=== PATIENT | female | born 1965 | race American Indian/Alaskan Native ===

== ENCOUNTER 2019-07-11 23:13 | Emergency (ER) | payer MEDICAID ==
--- NOTE | 2019-07-11 23:33 | Emergency Department Report ---
ED Neuro Deficit HPI - General Stated Complaint: CODE STROKE Time Seen by Provider: 07/11/19 23:21 Source: patient, EMS Mode of arrival: Stretcher Limitations: No Limitations - History of Present Illness Initial Comments: Mrs. Nur is a 54-year-old female history of DM, HTN, CVA presents with slurred speech, left sided weakness and facial droop sincer 10:15 PM. She was evaluated and treated last month at this hospital for CVA. Her symptoms have worsened today. She was discharged with aspirin. MRI brain without contrast revealed 1.2 cm acute infarct involving the right rody, there was a 4 mm focus of recent infarction along the lateral aspect of the left lateral ventricle Duplex Doppler ultrasound carotid bilateral revealed less than 50% diameter stenosis bilaterally -: Sudden, hour(s) (1 ) Location: speech, left face, left arm, left leg Presenting Symptoms: Present: Weak/Paralyzed One Side Place: home Severity: moderate Quality: weak Improves With: none Worsens With: none On Anticoagulants: No Context: sudden onset Associated Symptoms: denies other symptoms - Related Data Home Medications: Previous Rx's Medication Instructions Recorded Last Taken Type Aspirin 325 mg PO QDAY #30 tablet 06/23/19 Unknown Rx AtorvaSTATin [Lipitor] 40 mg PO QHS #30 tablet 06/23/19 Unknown Rx Insulin NPH/Regular [NovoLIN 70/30] 25 unit SUB-Q BIDDIAB #20 ml 06/23/19 Unknown Rx Pantoprazole [Protonix TAB] 40 mg PO QDAY #30 tablet 06/23/19 Unknown Rx Spironolactone [Aldactone] 50 mg PO QDAY #30 tablet 06/23/19 Unknown Rx amLODIPine 10 mg PO QDAY #30 tablet 06/23/19 Unknown Rx carvediloL [Coreg] 12.5 mg PO BID #60 tablet 06/23/19 Unknown Rx hydroCHLOROthiazide [HCTZ] 25 mg PO QDAY #30 tablet 06/23/19 Unknown Rx lisinopriL [Zestril TAB] 40 mg PO QDAY #30 tablet 06/23/19 Unknown Rx methOCARBAMOL [Robaxin TAB] 500 mg PO BID #60 tablet 06/23/19 Unknown Rx Allergies/Adverse Reactions: Allergies Allergy/AdvReac Type Severity Reaction Status Date / Time Penicillins Allergy Unknown Verified 06/20/19 08:46 Sulfa (Sulfonamide Allergy Unknown Verified 06/20/19 08:46 Antibiotics) ED Review of Systems ROS: Stated complaint: CODE STROKE Other details as noted in HPI Comment: All other systems reviewed and negative Constitutional: denies: fever, malaise Respiratory: denies: cough Cardiovascular: denies: chest pain Gastrointestinal: denies: abdominal pain ED Past Medical Hx - Past Medical History Previous Medical History?: Yes Hx Hypertension: Yes Hx CVA: Yes (TIA) Hx Heart Attack/AMI: Yes ("2 heart attacks in the past") Hx Diabetes: Yes Hx GERD: Yes Hx Liver Disease: No Hx Renal Disease: Yes Hx Sickle Cell Disease: No Hx Seizures: No Hx Asthma: No Hx COPD: Yes Hx Dementia: Yes Additional medical history: Cocaine abuse - Surgical History Past Surgical History?: Yes Hx Pacemaker: No Hx Internal Defibrillator: No Additional Surgical History: unknown - Social History Smoking Status: Current Every Day Smoker Substance Use Type: Alcohol - Medications Home Medications: Home Medications Medication Instructions Recorded Confirmed Last Taken Type Aspirin 325 mg PO QDAY #30 tablet 06/23/19 Unknown Rx AtorvaSTATin [Lipitor] 40 mg PO QHS #30 tablet 06/23/19 Unknown Rx Insulin NPH/Regular [NovoLIN 70/30] 25 unit SUB-Q BIDDIAB #20 ml 06/23/19 Unknown Rx Pantoprazole [Protonix TAB] 40 mg PO QDAY #30 tablet 06/23/19 Unknown Rx Spironolactone [Aldactone] 50 mg PO QDAY #30 tablet 06/23/19 Unknown Rx amLODIPine 10 mg PO QDAY #30 tablet 06/23/19 Unknown Rx carvediloL [Coreg] 12.5 mg PO BID #60 tablet 06/23/19 Unknown Rx hydroCHLOROthiazide [HCTZ] 25 mg PO QDAY #30 tablet 06/23/19 Unknown Rx lisinopriL [Zestril TAB] 40 mg PO QDAY #30 tablet 06/23/19 Unknown Rx methOCARBAMOL [Robaxin TAB] 500 mg PO BID #60 tablet 06/23/19 Unknown Rx ED Neuro Physical Exam - General Limitations: No Limitations General appearance: alert, in no apparent distress Suspected Stroke: No - Head Head exam: Present: atraumatic, normocephalic - Eye Eye exam: Present: normal appearance - ENT ENT exam: Present: mucous membranes moist - Neck Neck exam: Present: normal inspection - Respiratory Respiratory exam: Present: normal lung sounds bilaterally. Absent: respiratory distress, wheezes, rales, rhonchi - Cardiovascular Cardiovascular Exam: Present: regular rate, normal rhythm, normal heart sounds. Absent: systolic murmur, diastolic murmur, rubs, gallop - GI/Abdominal GI/Abdominal exam: Present: soft, normal bowel sounds. Absent: distended, tenderness, guarding, rebound - Extremities Exam Extremities exam: Present: normal inspection - Neurological Exam Neurological exam: Present: alert, oriented X3 - NIHSS Assessment Interval: Baseline 1a. Level of Consciousness: alert/keenly responsive 1b. LOC Questions: answers both correctly 1c. LOC Commands: performs tasks correctly 2. Best Gaze: normal 3. Visual: no visual loss 4. Facial Palsy: normal symmetrical movement 5b. Motor Arm Right: no drift 5a. Motor Arm Left: no drift 6a. Motor Leg Left: no drift 6b. Motor Leg Right: no drift 7. Limb Ataxia: absent 8. Sensory: normal 9. Best Language: mild/moderate aphasia 10. Dysarthria: mild/moderate dysarthria 11. Extinction/Inattention: no abnormality Total Score: 2 Stroke Severity: Minor Stroke - Psychiatric Psychiatric exam: Present: normal affect, normal mood - Skin Skin exam: Present: warm, dry, intact, normal color. Absent: rash ED Course Vital Signs 07/11/19 07/11/19 07/12/19 23:39 23:45 00:00 Pulse Rate 85 86 Respiratory 19 18 Rate Blood Pressure 184/104 175/98 O2 Sat by Pulse 94 95 96 Oximetry 07/12/19 07/12/19 07/12/19 00:15 00:32 00:45 Pulse Rate 82 80 Respiratory 20 22 Rate Blood Pressure 157/101 157/101 183/119 O2 Sat by Pulse 96 96 97 Oximetry 07/12/19 01:00 Pulse Rate 80 Respiratory 19 Rate Blood Pressure 180/123 O2 Sat by Pulse 96 Oximetry - Lab Data Result diagrams: 07/11/19 23:52 07/11/19 23:52 Lab Results 07/11/19 07/11/19 07/11/19 Range/Units 23:52 23:52 23:52 WBC 7.0 (4.5-11.0) K/mm3 RBC 4.45 (3.65-5.03) M/mm3 Hgb 12.6 (10.1-14.3) gm/dl Hct 38.0 (30.3-42.9) % MCV 85 (79-97) fl MCH 28 (28-32) pg MCHC 33 (30-34) % RDW 14.5 (13.2-15.2) % Plt Count 189 (140-440) K/mm3 Lymph % (Auto) 35.7 H (13.4-35.0) % [place] % (Auto) 6.4 (0.0-7.3) % Eos % (Auto) 0.7 (0.0-4.3) % Baso % (Auto) 0.5 (0.0-1.8) % Lymph # 2.5 (1.2-5.4) K/mm3 [place] # 0.4 (0.0-0.8) K/mm3 Eos # 0.0 (0.0-0.4) K/mm3 Baso # 0.0 (0.0-0.1) K/mm3 Seg Neutrophils % 56.7 (40.0-70.0) % Seg Neutrophils # 4.0 (1.8-7.7) K/mm3 PT 12.3 (12.2-14.9) Sec. INR 0.90 (0.87-1.13) APTT 33.0 (24.2-36.6) Sec. Sodium (137-145) mmol/L Potassium (3.6-5.0) mmol/L Chloride (98-107) mmol/L Carbon Dioxide (22-30) mmol/L Anion Gap mmol/L BUN (7-17) mg/dL Creatinine (0.7-1.2) mg/dL Estimated GFR ml/min BUN/Creatinine Ratio % Glucose (65-100) mg/dL POC Glucose (70-105) Calcium (8.4-10.2) mg/dL Total Bilirubin (0.1-1.2) mg/dL AST (5-40) units/L ALT (7-56) units/L Alkaline Phosphatase (35-129) units/L Troponin T < 0.010 (0.00-0.029) ng/mL Total Protein (6.3-8.2) g/dL Albumin (3.9-5) g/dL Albumin/Globulin Ratio % Urine Opiates Screen Urine Methadone Screen Ur Barbiturates Screen Ur Phencyclidine Scrn Ur Amphetamines Screen U Benzodiazepines Scrn Urine Cocaine Screen U Marijuana (THC) Screen Drugs of Abuse Note Plasma/Serum Alcohol (0-0.07) % 07/11/19 07/12/19 07/12/19 Range/Units 23:52 00:03 00:40 WBC (4.5-11.0) K/mm3 RBC (3.65-5.03) M/mm3 Hgb (10.1-14.3) gm/dl Hct (30.3-42.9) % MCV (79-97) fl MCH (28-32) pg MCHC (30-34) % RDW (13.2-15.2) % Plt Count (140-440) K/mm3 Lymph % (Auto) (13.4-35.0) % [place] % (Auto) (0.0-7.3) % Eos % (Auto) (0.0-4.3) % Baso % (Auto) (0.0-1.8) % Lymph # (1.2-5.4) K/mm3 [place] # (0.0-0.8) K/mm3 Eos # (0.0-0.4) K/mm3 Baso # (0.0-0.1) K/mm3 Seg Neutrophils % (40.0-70.0) % Seg Neutrophils # (1.8-7.7) K/mm3 PT (12.2-14.9) Sec. INR (0.87-1.13) APTT (24.2-36.6) Sec. Sodium 137 (137-145) mmol/L Potassium 4.2 (3.6-5.0) mmol/L Chloride 97.0 L (98-107) mmol/L Carbon Dioxide 28 (22-30) mmol/L Anion Gap 16 mmol/L BUN 26 H (7-17) mg/dL Creatinine 1.3 H (0.7-1.2) mg/dL Estimated GFR 51 ml/min BUN/Creatinine Ratio 20 % Glucose 473 H (65-100) mg/dL POC Glucose (70-105) Calcium 9.1 (8.4-10.2) mg/dL Total Bilirubin < 0.20 (0.1-1.2) mg/dL AST 39 (5-40) units/L ALT 24 (7-56) units/L Alkaline Phosphatase 96 (35-129) units/L Troponin T (0.00-0.029) ng/mL Total Protein 5.8 L (6.3-8.2) g/dL Albumin 3.6 L (3.9-5) g/dL Albumin/Globulin Ratio 1.6 % Urine Opiates Screen Presumptive negative Urine Methadone Screen Presumptive negative Ur Barbiturates Screen Presumptive negative Ur Phencyclidine Scrn Presumptive negative Ur Amphetamines Screen Presumptive negative U Benzodiazepines Scrn Presumptive negative Urine Cocaine Screen Presumptive positive U Marijuana (THC) Screen Presumptive negative Drugs of Abuse Note Disclamer Plasma/Serum Alcohol < 0.01 (0-0.07) % 07/12/19 07/12/19 Range/Units 01:08 01:12 WBC (4.5-11.0) K/mm3 RBC (3.65-5.03) M/mm3 Hgb (10.1-14.3) gm/dl Hct (30.3-42.9) % MCV (79-97) fl MCH (28-32) pg MCHC (30-34) % RDW (13.2-15.2) % Plt Count (140-440) K/mm3 Lymph % (Auto) (13.4-35.0) % [place] % (Auto) (0.0-7.3) % Eos % (Auto) (0.0-4.3) % Baso % (Auto) (0.0-1.8) % Lymph # (1.2-5.4) K/mm3 [place] # (0.0-0.8) K/mm3 Eos # (0.0-0.4) K/mm3 Baso # (0.0-0.1) K/mm3 Seg Neutrophils % (40.0-70.0) % Seg Neutrophils # (1.8-7.7) K/mm3 PT (12.2-14.9) Sec. INR (0.87-1.13) APTT (24.2-36.6) Sec. Sodium (137-145) mmol/L Potassium (3.6-5.0) mmol/L Chloride (98-107) mmol/L Carbon Dioxide (22-30) mmol/L Anion Gap mmol/L BUN (7-17) mg/dL Creatinine (0.7-1.2) mg/dL Estimated GFR ml/min BUN/Creatinine Ratio % Glucose (65-100) mg/dL POC Glucose 414 H (70-105) Calcium (8.4-10.2) mg/dL Total Bilirubin (0.1-1.2) mg/dL AST (5-40) units/L ALT (7-56) units/L Alkaline Phosphatase (35-129) units/L Troponin T < 0.010 (0.00-0.029) ng/mL Total Protein (6.3-8.2) g/dL Albumin (3.9-5) g/dL Albumin/Globulin Ratio % Urine Opiates Screen Urine Methadone Screen Ur Barbiturates Screen Ur Phencyclidine Scrn Ur Amphetamines Screen U Benzodiazepines Scrn Urine Cocaine Screen U Marijuana (THC) Screen Drugs of Abuse Note Plasma/Serum Alcohol (0-0.07) % 07/12/19 01:08 EKG obtained 0059 Normal sinus rhythm rate 75 bpm normal axis normal QT interval positive LVH no significant ST elevation to indicate infarct nonischemic T wave pattern - Radiology Data Radiology results: report reviewed CT head: Stable CT brain: No hemorrhage, there is evidence of encephalomalacia at the right parietal lobe also lacunar infarct at the left basal ganglia right rody AP portable chest: Mild cardiac enlargement no acute airspace or interstitial disease - Medical Decision Making Mrs. Nur presents with facial droop left-sided weakness. She has intact strength on my exam. Tele-neurologist Dr. Mcnamara agrees that this does not appear to be a new stroke. Ms. Nur endorsed chest pain to him. However she did not endorse chest pain to me. Dr. Mcnamara tele-neurologist agreed that her medical management has been optimized for prevention of future stroke with aspirin therapy. From a cardiovascular standpoint, readmission would not be indicated. Acute [place] ruled out with troponin x2. I do not suspect unstable angina or acute coronary syndrome CBC chemistry troponin x2 all within normal limits with exception of hyperglycemia and UDS positive for cocaine. Critical care attestation.: If time is entered above; I have spent that time in minutes in the direct care of this critically ill patient, excluding procedure time. ED Disposition Clinical Impression: History of CVA (cerebrovascular accident), Chest pain, Hyperglycemia Disposition: DC- TO HOME OR SELFCARE Is pt being admited?: No Does the pt Need Aspirin: No Condition: Stable Referrals: GAUTAM ROSE MD [Staff Physician] - 3-5 Days
--- NOTE | 2019-07-11 23:53 | Emergency Department Report ---
ED Neuro Deficit HPI - General Chief Complaint: Neuro Symptoms/Deficit Stated Complaint: CODE STROKE Time Seen by Provider: 07/11/19 23:21 Source: patient, EMS Mode of arrival: Stretcher Limitations: No Limitations - History of Present Illness Initial Comments: [facility] Date of Service: 07/11/2019 23:22:03 Impression: -Chest pain. -Recrudescence of prior stroke deficits. I do not think that there is a new stroke. Comments/Sign-Out: -I would not recommend tPA in this case. Patient had recent stroke that could cause hemorrhagic transformation and furthermore I do not think that this is a new stroke. -There is no clinical suspicion for LVO. Metrics: Last Known Well: 07/11/2019 22:00:00 [employer] Notification Time: 07/11/2019 23:21:39 Stamp Time: 07/11/2019 23:22:03 Time First Login Attempt: 07/11/2019 23:24:47 Video Start Time: 07/11/2019 23:24:47 Symptoms: chest pain, L LE pain, L sided weakness NIHSS Start Assessment Time: 07/11/2019 23:33:47 Patient is not a candidate for tPA. Patient was not deemed candidate for tPA thrombolytics because of No disabling symptoms at present, recent stroke with risk for hemorrhagic conversion. Video End Time: 07/11/2019 23:45:01 CT head was reviewed and results were: Old R parietal, R pontine, L thalamocapsular region, chronic small vessel disease, no ICH or actue pathology. Clinical Presentation is not Suggestive of Large Vessel Occlusive Disease ED Physician notified of diagnostic impression and management plan on 07/11/2019 23:50:16 Our recommendations are outlined below. Recommendations: -No tPA. Give ASA. -EtOH, UDS. -R/o ACS with EKG, trops. -I do not suspect recurrent cerebral ischemia, minor/mild L sided deficits are r esidual from recent R pontine infarct. I do not think readmission for repeat stroke evaluation is necessary at this time. Sign Out: Discussed with Emergency Department Provider History of Present Illness: Patient is a 54 year old Female. H/o DM2, HTN, cocaine abuse, recent stroke last month with residual L hemipar esis. During hospitalization on 06/21/2019 MRI showed acute lacunar infarct R rody and also in L periventricular region, BONNY negative, I do not see that vascular imaging was done. 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 History is very vague as to tonight's symptoms. RN reported patient had worsening L sided deficits, but patient initially told me that she came in because of chest pain and L LE pain. She does have slight weakness on her L side, but this is residual from recent stroke. Examination: 1A: Level of Consciousness - Alert; keenly responsive + 0 1B: Ask Month and Age - Both Questions Right + 0 1C: Blink Eyes & Squeeze Hands - Performs Both Tasks + 0 2: Test Horizontal Extraocular Movements - Normal + 0 3: Test Visual Ball - No Visual Loss + 0 4: Test Facial Palsy (Use Grimace if Obtunded) - Normal symmetry + 0 5A: Test Left Arm Motor Drift - No Drift for 10 Seconds + 0 5B: Test Right Arm Motor Drift - No Drift for 10 Seconds + 0 6A: Test Left Leg Motor Drift - Drift, but doesn't hit bed + 1 (inconsistent effort) 6B: Test Right Leg Motor Drift - No Drift for 5 Seconds + 0 7: Test Limb Ataxia (FNF/Heel-Hamilton) - No Ataxia + 0 8: Test Sensation - Mild-Moderate Loss: Less Sharp/More Dull + 1 9: Test Language/Aphasia - Normal; No aphasia + 0 10: Test Dysarthria - Normal + 0 11: Test Extinction/Inattention - No abnormality + 0 NIHSS Score: 2 Patient/Family was informed the Neurology Consult would happen via TeleHealth consult by way of interactive audio and video telecommunications and consented to receiving care in this manner. Due to the immediate potential for life-threatening deterioration due to underlying acute neurologic illness, I spent 35 minutes providing critical care. This time includes time for face to face visit via telemedicine, review of medical records, imaging studies and discussion of findings with providers, the patient and/or family. Dr Benjamin Mcnamara [facility] Case [id number] Location: speech, left face, left arm, left leg Place: home Severity: moderate Quality: weak Improves With: none Worsens With: none On Anticoagulants: No - Related Data Home Medications: Previous Rx's Medication Instructions Recorded Last Taken Type Aspirin 325 mg PO QDAY #30 tablet 06/23/19 Unknown Rx AtorvaSTATin [Lipitor] 40 mg PO QHS #30 tablet 06/23/19 Unknown Rx Insulin NPH/Regular [NovoLIN 70/30] 25 unit SUB-Q BIDDIAB #20 ml 06/23/19 Unknown Rx Pantoprazole [Protonix TAB] 40 mg PO QDAY #30 tablet 06/23/19 Unknown Rx Spironolactone [Aldactone] 50 mg PO QDAY #30 tablet 06/23/19 Unknown Rx amLODIPine 10 mg PO QDAY #30 tablet 06/23/19 Unknown Rx carvediloL [Coreg] 12.5 mg PO BID #60 tablet 06/23/19 Unknown Rx hydroCHLOROthiazide [HCTZ] 25 mg PO QDAY #30 tablet 06/23/19 Unknown Rx lisinopriL [Zestril TAB] 40 mg PO QDAY #30 tablet 06/23/19 Unknown Rx methOCARBAMOL [Robaxin TAB] 500 mg PO BID #60 tablet 06/23/19 Unknown Rx Allergies/Adverse Reactions: Allergies Allergy/AdvReac Type Severity Reaction Status Date / Time Penicillins Allergy Unknown Verified 06/20/19 08:46 Sulfa (Sulfonamide Allergy Unknown Verified 06/20/19 08:46 Antibiotics) ED Review of Systems ROS: Stated complaint: CODE STROKE Other details as noted in HPI Constitutional: denies: fever, malaise Respiratory: denies: cough Cardiovascular: denies: chest pain Gastrointestinal: denies: abdominal pain ED Past Medical Hx - Past Medical History Previous Medical History?: Yes Hx Hypertension: Yes Hx CVA: Yes (TIA) Hx Heart Attack/AMI: Yes ("2 heart attacks in the past") Hx Diabetes: Yes Hx GERD: Yes Hx Liver Disease: No Hx Renal Disease: Yes Hx Sickle Cell Disease: No Hx Seizures: No Hx Asthma: No Hx COPD: Yes Hx Dementia: Yes Additional medical history: Cocaine abuse - Surgical History Past Surgical History?: Yes Hx Pacemaker: No Hx Internal Defibrillator: No Additional Surgical History: unknown - Social History Smoking Status: Current Every Day Smoker Substance Use Type: Alcohol - Medications Home Medications: Home Medications Medication Instructions Recorded Confirmed Last Taken Type Aspirin 325 mg PO QDAY #30 tablet 06/23/19 Unknown Rx AtorvaSTATin [Lipitor] 40 mg PO QHS #30 tablet 06/23/19 Unknown Rx Insulin NPH/Regular [NovoLIN 70/30] 25 unit SUB-Q BIDDIAB #20 ml 06/23/19 Unknown Rx Pantoprazole [Protonix TAB] 40 mg PO QDAY #30 tablet 06/23/19 Unknown Rx Spironolactone [Aldactone] 50 mg PO QDAY #30 tablet 06/23/19 Unknown Rx amLODIPine 10 mg PO QDAY #30 tablet 06/23/19 Unknown Rx carvediloL [Coreg] 12.5 mg PO BID #60 tablet 06/23/19 Unknown Rx hydroCHLOROthiazide [HCTZ] 25 mg PO QDAY #30 tablet 06/23/19 Unknown Rx lisinopriL [Zestril TAB] 40 mg PO QDAY #30 tablet 06/23/19 Unknown Rx methOCARBAMOL [Robaxin TAB] 500 mg PO BID #60 tablet 06/23/19 Unknown Rx ED Neuro Physical Exam - General Limitations: No Limitations General appearance: alert, in no apparent distress Suspected Stroke: No - NIHSS Assessment Interval: Baseline 1a. Level of Consciousness: alert/keenly responsive 1b. LOC Questions: answers both correctly 1c. LOC Commands: performs tasks correctly 2. Best Gaze: normal 3. Visual: no visual loss 4. Facial Palsy: normal symmetrical movement 5b. Motor Arm Right: no drift 5a. Motor Arm Left: no drift 6a. Motor Leg Left: drift 6b. Motor Leg Right: no drift 7. Limb Ataxia: absent 8. Sensory: mild/moderate sensory loss 9. Best Language: no aphasia 10. Dysarthria: normal 11. Extinction/Inattention: no abnormality Total Score: 2 Stroke Severity: Minor Stroke Critical care attestation.: If time is entered above; I have spent that time in minutes in the direct care of this critically ill patient, excluding procedure time. ED Disposition Clinical Impression: History of CVA (cerebrovascular accident) Disposition: DC-01 TO HOME OR SELFCARE Is pt being admited?: No Condition: Stable Referrals: PRIMARY CARE, [Primary Care Provider] - 3-5 Days
--- NOTE | 2019-07-12 00:07 | Cat Scan Report ---
CT head/brain wo con INDICATION: STROKE PROTOCOL!!!, Left sided deficit along with speech difficulties. Just released [facility] a 1 week ago.. TECHNIQUE: All CT scans at this location are performed using the following dose modulation technique: Automated exposure control. CONTRAST: None. COMPARISON: CT brain 06/20/2019. FINDINGS: The ventricular system is appropriate in size and configuration without midline shift. Low density is again seen within the periventricular white matter typical of chronic small vessel ischemi c change. A focus of encephalomalacia at the inferior right parietal lobe is unchanged as are lacunar infarcts at the left basal ganglia and right rody. Negative for mass, stroke or hemorrhage. Imaged portions of the paranasal sinuses are clear. IMPRESSION: Stable CT brain. CODE STROKE: Called to the emergency room at 11:00 PM Central standard time. This was the time of int erpretation. Signer Name: Yadiel Fournier MD Signed: 07/12/2019 12:03 AM Workstation Name: [id number]
[2019-07-12 00:23] LABS: Basophils % (Auto) 0.5 % (0.0-1.8); Eosinophils % (Auto) 0.7 % (0.0-4.3); Hemoglobin 12.6 gm/dl (10.1-14.3); Lymphocytes # (Auto) 2.5 K/mm3 (1.2-5.4); Lymphocytes % (Auto) 35.7 % (13.4-35.0); Mean Corpuscular HGB Conc 33 % (30-34); Mean Corpuscular Volume 85 fl (79-97); Monocytes # (Auto) 0.4 K/mm3 (0.0-0.8); Monocytes % (Auto) 6.4 % (0.0-7.3); Platelet Count 189 K/mm3 (140-440); Red Blood Count 4.45 M/mm3 (3.65-5.03); Red Cell Distribution Width 14.5 % (13.2-15.2)
--- NOTE | 2019-07-12 00:32 | XRay Report ---
CHEST 1 VIEW INDICATION: left sided weakness. COMPARISON: None. FINDINGS: Support devices: None. Heart: Mild cardiac enlargement. Lungs/Pleura: No acute air space or interstitial disease. Additional findings: None. IMPRESSION: Mild cardiac enlargement. Signer Name: Yadiel Fournier MD Signed: 07/12/2019 12:28 AM Workstation Name: [id number]
[2019-07-12 00:35] LABS: Hemolysis Index 0
[2019-07-12 00:44] LABS: INR 0.9 (0.87-1.13)
[2019-07-12 00:55] LABS: Amphetamine Screen,Urine PRESUMPTIVE NEGATIVE; Benzodiazepines Screen,Urine PRESUMPTIVE NEGATIVE; Cannabinoid Screen,Urine PRESUMPTIVE NEGATIVE; Methadone Screen,Urine PRESUMPTIVE NEGATIVE; Opiate Screen,Urine PRESUMPTIVE NEGATIVE
[2019-07-12 01:05] VITALS: BP 180/123
[2019-07-12 01:07] LABS: Alanine Aminotransferase 24 units/L (7-56); Albumin 3.6 g/dL (3.9-5); BUN/Creatinine Ratio 20; Blood Urea Nitrogen 26 mg/dL (7-17); Calcium 9.1 mg/dL (8.4-10.2)
[2019-07-12 01:09] LABS: Cocaine Screen,Urine PRESUMPTIVE POSITIVE
== END 2019-07-12 02:38 | disposition home or self-care (01) ==
LOC: ED 23:13
DX: E11.65 Type 2 diabetes mellitus with hyperglycemia (principal); R07.9 Chest pain, unspecified; I10 Essential (primary) hypertension; I25.2 Old myocardial infarction; K21.9 Gastro-esophageal reflux disease without esophagitis; J44.9 Chronic obstructive pulmonary disease, unspecified; F03.90 Unspecified dementia, unspecified severity, without behavioral disturbance, psychotic disturbance, mood disturbance, and anxiety; F14.10 Cocaine abuse, uncomplicated; F17.200 Nicotine dependence, unspecified, uncomplicated; Z79.899 Other long term (current) drug therapy; Z88.0 Allergy status to penicillin; Z88.2 Allergy status to sulfonamides; Z86.73 Personal history of transient ischemic attack (TIA), and cerebral infarction without residual deficits
CPT/HCPCS: 36415; 70450; 71045; 80053; 80307; 80320; 82962; 84484; 85025; 85610; 85730; 93005; G0480